=== PATIENT | male | born 1970 | race Caucasian/White ===

== ENCOUNTER → 2022-03-25 08:03 | Outpatient (CLI) | payer OTHER, SELFPAY ==
--- NOTE | ~2022-03-25 | XR_ITS ---
EXAMINATION: XR ankle LT min 3V DATE: 03/25/2022 08:27 INDICATION: Left ankle pain TECHNIQUE: Anteroposterior, lateral, mortise, and additional oblique view of the ankle were obtained. COMPARISON: None. FINDINGS: Bone alignment is normal. No acute fracture is identified. Calcified atherosclerosis is not ed. A linear heterotopic ossification projecting distal to the lateral malleolus may reflect prior in jury. IMPRESSION: 1. No acute osseous abnormality. Reviewed, dictated and finalized at location B.
== END ==
PROVIDERS: PCP Physician Assistant; Visit Provider Physician Assistant
DX: M25.572 Pain in left ankle and joints of left foot (principal)
CPT/HCPCS: 73610